=== PATIENT | male | born 1970 | race Caucasian/White ===

== ENCOUNTER 2023-07-14 15:48 | Outpatient (AMB) | payer MEDICARE, MEDICAID, SELFPAY ==
--- NOTE | 2023-07-14 16:11 | A.OFFPC_ITS ---
Vital Signs 07/14/23 16:15 Height 6 ft 1 in Weight 199 lb 4 oz BMI 26.3 BP 150/82 H Blood Pressure Location Lt brachial Position Sitting Pulse 68 Pulse Source Pulse Oximeter Pulse Oximetry (%) 98 Oxygen Delivery Method Room Air Intake Visit Reasons: [employer]/ADHD Allergies No Known Allergies Allergy (Verified 07/14/23 16:16) Medication List - Last Reconciled 07/14/23 by ISAIAS Lucero losartan 25 mg PO DAILY omeprazole 40 mg PO DAILY Tobacco use date assessed: 07/14/23 Dental Screening Dental Screen Date: 07/14/23 Did you have a dental visit in the last 12 months?: No Did you have a dental problem in the last 6 months where you did not have access to dental care?: No Was dental information given to patient?: Patient has dentist HPI [employer]/ADHD HPI Details New pt is here to establish care. HTN: Blood pressure is elevated. Will start losartan 25mg. Will have pt monitor his BP at home. Denies chest pain, shortness of breath, headache, dizziness, and blurred vision. Due for PSA, will order. Denies weak stream, nocturia, does report dribbling with urination. Pt has not had a colon screen, will refer to GI. [facility] Medical History (Updated 07/14/23 @ 18:12 by ISAIAS Lucero) Dyslipidemia HTN (hypertension) Social History Housing: Other Patient Tobacco Use Status: Former Tobacco user e-Cigarette/Vaping Use: Never Used Second Hand Smoke Exposure: Yes service: No Current occupational status: disabled Cognitive needs: No Hearing needs: No Vision needs: No Questionnaire PHQ-9 Over the last 2 weeks, how often have you been bothered by any of the following problems? 1. Little interest or pleasure in doing things: several days 2. Feeling down, depressed, or hopeless: not at all 3. Trouble falling or staying asleep, or sleeping too much: nearly every day 4. Feeling tired or having little energy: several days 5. Poor appetite or overeating: several days 6. Feeling bad about yourself - or that you are a failure or have let yourself or your family down: not at all 7. Trouble concentrating on things, such as reading the newspaper or watching television: not at all 8. Moving or speaking so slowly that other people could have noticed. Or the opposite - being so fidgety or restless that you have been moving around a lot more than usual: not at all 9. Thoughts that you would be better off or of hurting yourself in some way: several days Total score: 7 18431 - PHQ-9 Billing: Yes Source: Developed by Drs. Jeff Polanco, Hallie Garrett, Weston Ko and colleagues, with an educational jewel from [employer]. Thrive Questionnaire Date Thrive assessed: 07/14/23 I am a: Patient What is your living situation today?: I have a steady place to live Within the past 12 months, did the food you bought not last and you didn't have the money to get more?: Never true Within the past 12 months, did you worry whether your food would run out before you got money to buy more?: Never true Do you have trouble paying for medicines?: No Do you have trouble getting transportation to medical appointments?: No Do you have trouble paying your heating and electricity bill?: No Do you have trouble taking care of your child, family member or friend?: No Do you have trouble with day-to-day activities such as bathing, preparing meals, shopping, managing finances, etc.?: No Are you currently unemployed and looking for a job?: No Are you interested in more education?: No AUDIT C Alcohol Use Questionnaire (AUDIT-C) 1. How often do you have a drink containing alcohol?: 2-3 times a week 2. How many drinks containing alcohol do you have on a typical day when you are drinking?: 5 or 6 3. How often do you have six or more drinks on one occasion?: Weekly Total Score: 8 Score Reviewed/Action Taken: Yes ERIN-7 AMB Questionnaire ERIN-7 Date ERIN - 7 assessed: 07/14/23 Feeling nervous, anxious, or on edge: 0 = Not at all Not being able to stop or control worryin = Several days Worrying too much about different things: 1 = Several days Trouble relaxin = Not at all Being so restless that it is hard to sit still: 0 = Not at all Becoming easily annoyed or irritable: 1 = Several days Feeling afraid as if something awful might happen: 1 = Several days Total ERIN-7 score (0-4 normal; 5-9 mild; 10-14 moderate; 15-21 severe): 4 Source: Developed by Drs. Jeff Polanco, Hallie Garrett, Weston Ko and colleagues, with an educational jewel from [employer]. ERIN-7 Assessment Billing ERIN-7 Assessment Tool: ERIN-7 Assessment 60504 Review of Systems Const Reports as per HPI Physical exam (Primary Care) Vital Signs: Last Vital Signs Pulse 68 07/14/23 16:15 BP 150/82 H 07/14/23 16:15 Pulse Ox 98 07/14/23 16:15 Oxygen Delivery Method Room Air 07/14/23 16:15 BMI result Body Mass Index 26.3 Tobacco/Smoking Status: Tobacco use Status Tobacco use date assessed 07/14/23 07/14/23 16:21 Patient Tobacco Use Status Former Tobacco user 07/14/23 16:21 e-Cigarette/Vaping Use Never Used 07/14/23 16:21 PHQ-9: PHQ-9 Score PHQ-9: Total score 7 07/14/23 16:49 Thrive Assessment: Date of Thrive Assessment Date Thrive assessed 07/14/23 07/14/23 16:21 Const General: cooperative Nutritional Appearance: well nourished Orientation/consciousness: patient oriented x3 HENMT Head: Yes normal to inspection, Yes normocephalic and Yes atraumatic Ears: TM's normal bilaterally Eyes General: appearance normal, both eyes and all related structures Alignment and Position: alignment normal and position normal Neck Neck: Yes normal visual inspection and Yes no lymphadenopathy Thyroid: Thyroid normal Resp Effort & Inspection: normal respiratory effort Auscultation: clear to auscultation bilaterally Cardio Rate: regular rate Rhythm: regular rhythm Heart sounds: S1 normal heart sound present and S2 normal heart sound present GI Palpation (GI): Soft to palpation and nontender Auscultation: normal bowel sounds Other: prostate enlarged, difficult to palpate Male General Exam: Yes normal external exam Penis: normal penis Scrotum: scrotum normal, testes descended bilaterally and no inguinal hernias Testes: no testicular mass Skin Rashes: no rashes Neuro General: patient oriented x3 Romberg Test: Negative Psych Appearance: grossly normal Mental Status: mental status grossly normal Speech and movement: Normal speech and movement present Affect: normal affect Attitude: cooperative Thought process: Normal thought process present Thought content: Normal thought content present Insight: Good insight present (Psych) Judgement: Good judgement present (Psych) Assessment and Plan Assessment & Plan (1) Screening for prostate cancer: Code(s): Z12.5 - Encounter for screening for malignant neoplasm of prostate Plan: PSA ordered (2) Screen for colon cancer: Code(s): Z12.11 - Encounter for screening for malignant neoplasm of colon Plan: Referred to GI (3) HTN (hypertension): Code(s): I10 - Essential (primary) hypertension Plan The patient agreed to the use of a certified medical asst for this encounter. Scribed for DEIDRE Matos-BC by Deja Palencia certified medical asst, on 07/14/2023 at 16:40 EST. Orders: Orders Comprehensive [place]. Panel Fast Today Z00.00 - Encounter for general adult medical examination without abnormal findings Lipid Panel Today Z00.00 - Encounter for general adult medical examination without abnormal findings TSH reflex Free T4 Today Z00.00 - Encounter for general adult medical examination without abnormal findings Complete Blood Count Auto Diff Today Z00.00 - Encounter for general adult medical examination without abnormal findings UA CC w/rflx Micro + Cult Today Z00.00 - Encounter for general adult medical examination without abnormal findings Prostate Specific Antigen Scr Today Z12.5 - Encounter for screening for malignant neoplasm of prostate Referrals Gastroenterology Referral Z12.11 - Encounter for screening for malignant neoplasm of colon Medications: New losartan 25 mg PO DAILY 90 tabs 0RF Coding Level of Care Code New Pt Level 3 (26576) Diagnoses Screening for prostate cancer Z12.5 Screen for colon cancer Z12.11 HTN (hypertension) I10 Additional Codes ERIN-7 Assessment Billing - ERIN-7 Assessment Tool: ERIN-7 Assessment [id number] ([id number])
[2023-07-14 16:15] VITALS: BP 150/82; PULSE 68; O2SAT 98; BMI 26.3
== END 2023-07-14 17:04 | disposition home or self-care (01) ==
LOC: HO.HMGC 15:48
PROVIDERS: PCP Nurse Practitioner Family; Visit Provider Nurse Practitioner Family
DX: Z12.5 Encounter for screening for malignant neoplasm of prostate (principal); Z12.11 Encounter for screening for malignant neoplasm of colon; I10 Essential (primary) hypertension
CPT/HCPCS: 99203

== ENCOUNTER 2024-05-02 11:45 | Outpatient (AMB) | payer MEDICARE, MEDICAID, SELFPAY ==
--- NOTE | 2024-05-02 11:54 | A.OFFVIS_ITS ---
Vital Signs 05/02/24 11:55 Height 6 ft 1 in Weight 210 lb BMI 27.7 BP 132/80 Blood Pressure Location Lt brachial Position Sitting Pulse 92 Pulse Source Auscultation Intake Visit Reasons: Colonoscopy screening Intake Note: New consult for 1st pre colonoscopy screening Patient cc: swallowing problems with solid food and taking his breath out, denies any other GI issues. Emergency Room Physician Required: No Accompanied by: Self / Same As Patient Allergies No Known Allergies Allergy (Verified 05/02/24 11:54) Medication List - Last Reconciled 05/02/24 by Patricia Pagan PA-C HPI Comments Details: An irritable, 54 y/o male referred for index screening colonoscopy-expresses his dissatisfaction with health care providers He has normal bowels- He had an EGD at [place] less than a year ago-Omeprazole- didn't help- takes tums- not helpful He did not want to wait-at [facility] when scheduled for colonoscopy he left without having it done. He then self referred [place] [facility] [place]he then says he did not really want to have a colonoscopy he is just came so that he can have the tube down his throat He has difficulty swallowing- he chokes on some foods- feels throat irritated- wants another EGD-no record for review He says his appointments get canceled- has not been seen by pcp He has no nausea, vomiting abdominal pain, fever or chills [facility] Medical History (Updated 05/02/24 @ 13:03 by Patricia Pagan PA-C) Dyslipidemia HTN (hypertension) Social History (Updated 05/02/24 @ 12:36 by Patricia Pagan PA-C) Household Members Other:: single Housing: Other Alcohol intake: current Comment: 6 beers Patient Tobacco Use Status: Former Tobacco user e-Cigarette/Vaping Use: Never Used Second Hand Smoke Exposure: Yes service: No Current occupational status: disabled Cognitive needs: No Hearing needs: No Vision needs: No Review of Systems Const All systems reviewed & are unremarkable except as noted in HPI and below ENT Reports dysphagia Card Denies chest pain and Denies dyspnea Resp Denies dyspnea GI Denies abdominal pain, Denies hematochezia, Denies change in bowel habits, Reports dysphagia, Denies nausea and Denies vomiting Neuro Reports behavioral changes Psych Reports behavioral changes Physical Exam Vital Signs: Last Vital Signs BP 132/80 05/02/24 11:55 BMI result Body Mass Index 27.7 Const General: healthy appearing, no acute distress and anxious Orientation/consciousness: patient oriented x3 Limitations: no limitations Eyes Sclerae: sclerae normal Resp Effort & Inspection: normal respiratory effort and able to speak in complete sentences Auscultation: clear to auscultation bilaterally, no rales, no rhonchi and no wheezes Cardio Rate: regular rate Rhythm: regular rhythm GI Palpation (GI): Soft to palpation and nontender Auscultation: normal bowel sounds Neuro General: patient oriented x3 Extrem General: Yes full ROM Psych Speech and movement: Pressured speech present Affect: Hostile affect present Thought process: Illogical thought process present Assessment & Plan Assessment & Plan (1) Screen for colon cancer: Comment: Very irritable, expresses dissatisfaction with medical provider Recent (within last year) [facility] GI declines-agrees to Cologuard-understands colonoscopy as gold standard Code(s): Z12.11 - Encounter for screening for malignant neoplasm of colon Category: Medical Plan: Cologuard-hopefully he follows through (2) Dysphagia: Comment: Normal EGD less than 1 year ago per his report- Code(s): R13.10 - Dysphagia, unspecified Category: Medical Plan: chew well Eat slowly ppi- Barium swallow Orders: Orders Colonoscopy - GI Use Only Today Z12.11 - Encounter for screening for malignant neoplasm of colon [place] barium swallow Today R13.10 - Dysphagia, unspecified, Z12.11 - Encounter for screening for malignant neoplasm of colon H pylori Ag Stool Today A04.8 - Other specified bacterial intestinal infections Referrals Cologuard Test Z12.11 - Encounter for screening for malignant neoplasm of colon Medications: New pantoprazole 20 mg PO QAM 30 tabs 6RF Patient Instructions: Eat slowly Chew well H pylori stool antigen if positive will May begin pantoprazole once submit Coding Level of Care Code New Pt Level 4 (75356) Diagnoses Screen for colon cancer Z12.11 Dysphagia R13.10 Time Spent (min) 35
[2024-05-02 11:55] VITALS: BP 132/80; PULSE 92; BMI 27.7
== END 2024-05-02 13:30 | disposition home or self-care (01) ==
PROVIDERS: PCP Nurse Practitioner Family; Visit Provider Physician Assistant
DX: R13.10 Dysphagia, unspecified (principal); Z12.11 Encounter for screening for malignant neoplasm of colon
CPT/HCPCS: 99204

== ENCOUNTER → 2024-05-02 11:45 | Outpatient (BNVA) | payer MEDICARE, MEDICAID, SELFPAY | PROVIDERS: PCP Nurse Practitioner Family; Visit Provider Physician Assistant | DX: Z12.11 Encounter for screening for malignant neoplasm of colon (principal); R13.10 Dysphagia, unspecified | CPT/HCPCS: 99202 ==